=== PATIENT | female | born 1995 | race Hispanic/Latino ===

== ENCOUNTER 2024-07-31 07:38 | Emergency (ER) | payer SELFPAY ==
[2024-07-31] VITALS (8 sets, daily range): BP systolic 96–129; BP diastolic 60–74; BMI 25.9
[2024-07-31 08:44] LABS: % Basophils 1.4 % (0-2); % Eosinophils 5.5 % (0-6); % Monocytes 6.7 % (1.7-9.3); % Neutrophils 55.4 % (42.2-75.2); Absolute Basophils 0.1 10^3/uL (0-0.2); Absolute Eosinophils 0.2 10^3/uL (0-0.7); Absolute Lymphocytes 1.3 10^3/uL (1.2-3.4); Absolute Monocytes 0.3 10^3/uL (0.1-0.6); Absolute Neutrophils 2.3 10^3/uL (1.4-6.5); Hematocrit 40.6 % (37.0-47.0); Hemoglobin 13.4 g/dL (12.0-16.0); Mean Corpuscular Hgb 29.2 pg (27.0-31.0); Mean Corpuscular Volume 88.5 fL (81.0-99.0); Mean Platelet Volume 10.1 fL (7.4-10.4); Nucleated Red Blood Cells % 0 %; Platelet Count 242 10^3/uL (130-400); Red Blood Cell Count 4.59 10^6/uL (4.20-5.40); Red Cell Dist. Width 12.8 % (11.5-14.5); White Blood Cell Count 4.2 10^3/uL (4.8-10.8)
[2024-07-31 09:00] LABS: ALT (SGPT) 17 U/L (0-35); AST (SGOT) 22 U/L (14-36); Albumin 4.5 g/dl (3.5-5.0); Alkaline Phosphatase 50 U/L (38-126); Blood Urea Nitrogen 11 mg/dl (7-17); Calcium 9.1 mg/dl (8.4-10.2); Carbon Dioxide 25 mmol/L (22-30); Chloride 104 mmol/L (98-107); Estimated Creatinine Clearance > 125 ml/min; Glucose 100 mg/dl (70-99); Lipase 102 U/L (23-300); Sodium 140 mmol/L (135-145); Total Bilirubin 0.4 mg/dl (0.2-1.3); Total Protein 7.2 g/dl (6.3-8.2); eGFR > 60.00
--- NOTE | 2024-07-31 09:00 | ED.GENMED ---
History of Present Illness
General
Chief Complaint: Abdominal Pain
Source: patient
Exam Limitations: none and other (contract administration coordinator used)
Time Seen by Provider: 07/31/24 08:14
Nursing documentation reviewed up to this point in time: agreed with
History of Present Illness
History of Present Illness:
29-year-old female presenting to the emergency department today with concerns of lower abdominal pain and pelvic pain with some radiation to the left flank over the past 4 days also vaginal bleeding and pelvic discomfort as well as urinary burning.
Vaginal bleeding is only after going to the bathroom no ongoing bleeding. No discharge no concerns for STD no new sexual contacts.
Review of Systems
Review of Systems
Allergies reviewed?: Yes
All Other Systems: ROS reviewed and negative except as documented in HPI and ROS
Phy Exam
Physical Exam
Physical Exam:
GENERAL: Alert , in no apparent distress
EYE: pupils equal and reactive
NECK: Supple, no significant adenopathy.
ENT: o/p clr, mmm.
CARDIAC: Regular rate and rhythm .
LUNGS: Clear breath sounds bilaterally, no acute respiratory distress, no wheezes/rales/rhonchi
ABDOMEN: Examination with diffuse discomfort no specific masses no discharge small mount of blood in the vaginal vault. Also mild discomfort to the lower suprapubic region otherwise the remainder of the abdomen soft, without focal tenderness, no
r/g, no cvat
NEUROLOGICAL: Alert and oriented, no focal neuro deficits
SKIN: Warm and dry, skin intact.
MUSCULOSKELETAL: No edema, well perfused.
PSYCH: Normal and appropriate interaction.
Course
Orders/Labs/Results
Orders:
Orders
07/31/24 08:37
Complete Blood Count/With Diff Urgent
Comprehensive Metabolic Panel Urgent
HCG, Serum Qualitative Screen Urgent
Comment: ADD ON
Lipase Urgent
07/31/24 08:48
Add On- LAB Urgent
Tests Added?: hcg serum qual
07/31/24 08:58
US Pelvis W Transvag Combined Urgent
Reason For Exam: pelvic pain few days
07/31/24 09:37
Urinalysis Reflex To Culture Urgent
Date Specimen was Collected: 07/31/24
Time Specimen was Collected: 09:00
Urine Microscopic Reflex Cult Urgent
07/31/24 14:15
CT Abd/Pel (IV only)-DH only Urgent
Comment:
Reason For Exam: lower abd pain
07/31/24 15:42
Ibuprofen [Motrin] 600 mg PO NOW STA
Abnormal Lab Results
07/31/24 07/31/24
08:37 09:37
WBC 4.2 L 10^3/uL
(4.8-10.8)
Glucose 100 H mg/dl
(70-99)
Ur Occult Blood Reflex 4+ A
(Negative)
Urine RBC 3-6 A /HPF
(0-2)
Urine Bacteria (Reflex) Few A
(Negative)
07/31/24 08:37
07/31/24 08:37
Vital Signs
Initial and Last Documented VS:
Initial Vital Signs
Temp Pulse Resp BP Pulse Ox
98.2 F 78 16 129/74 100
07/31/24 07:40 07/31/24 07:40 07/31/24 07:40 07/31/24 07:40 07/31/24 07:40
Last Documented Vital Signs
Temp Pulse Resp BP Pulse Ox
97.6 F 53 20 109/65 99
07/31/24 08:36 07/31/24 10:54 07/31/24 10:54 07/31/24 12:00 07/31/24 12:15
MDM/Problems Addressed
MDM/Problems Addressed:
29-year-old female presenting to the emergency department with concerns of 4 days of pelvic discomfort with some radiation to the left flank. Some mild urinary symptoms as well as small mount of blood tinge when urinating. Denies vaginal bleeding
no concern for STD. Here urinalysis without signs of infection. Examination with no discharge no evidence of PID. Ultrasound showing ovarian cyst but good blood flow no evidence of ovarian torsion. She was advised for close outpatient follow-up
with [facility] return precautions given.
*Critical Care Note
Total Time (30-74mins, 75-104mins- exclusive of procedures): Not Applicable
ED Attending Note
-
Portions of this chart may have been created with voice recognition software.� Occasional wrong word or��sound alike� substitutions may have occurred due to the inherent limitations of voice recognition software.
Discharge Plan
Departure
Patient Disposition: Home (Routine Discharge)
Date of Disposition: 07/31/24
Time of Disposition: 15:43
Patient with high blood pressure during this ER visit?: No
Condition: Good
Covid-19: Not Applicable
Discharge Problem:
Ovarian cyst
Instructions: Ovarian Cyst (DC)
Prescriptions:
No Action
No Current Medications
0
Referrals:
Linda Vizcaino, DO [Active] - Follow up in 5-7 days
NONE,* [Family Provider] -
Activity Restrictions/Additional Instructions:
You came to the emergency department today with concerns of pelvic discomfort. You did have an ovarian cyst that could be causing symptoms. Please follow closely with gynecology for further assessment. Return for any worsening, new or concerning
symptoms.
Interventions
Interventions:
*Risk Screen - Suicide Last Done: 07/31/24 07:40
*General Assessment Last Done: 07/31/24 07:40
*Neglect/Abuse Screening Last Done: 07/31/24 08:36
ED- Fall Risk Assessment Last Done: 07/31/24 08:36
*ED COVID-19 Vaccine History Last Done: 07/31/24 07:40
IK-Jltzjd-Yhnjugemqz Assessment Last Done: 07/31/24 08:36
Discharge Date and Time
Print Language: IRISH
[2024-07-31 09:32] LABS: HCG, Serum Qualitative Screen Negative
--- NOTE | 2024-07-31 09:39 | EDRN ---
urine sent to the lab
[2024-07-31 09:48] LABS: Urine Albumin Negative (Neg - Trace); Urine Bilirubin Negative (Negative); Urine Character Clear (Clear); Urine Color Yellow; Urine Glucose Negative (Negative); Urine Ketone Negative (Negative); Urine Leukocyte Negative (Negative); Urine Nitrite Negative (Negative); Urine Occult Blood 4+ (Negative); Urine Urobilinogen Negative (Neg - 1+)
--- NOTE | 2024-07-31 09:52 | EDRN ---
the pt is resting in stretcher in the lowest position, side rails up x1, HOB elevated, call abrams within reach, no s/s of distress, the pt denies needing anything at this time, awaiting for the pt to go to ultrasound, will continue to monitor the pt
closely
[2024-07-31 10:08] LABS: Urine Bacteria Few (Negative)
--- NOTE | 2024-07-31 12:22 | EDRN ---
the pt was taken to ultrasound by this RN
--- NOTE | 2024-07-31 13:11 | EDRN ---
the pt has returned from ultrasound
[2024-07-31] MEDS: MOTRIN 600 MG PO (15:50)
== END 2024-07-31 15:57 | disposition home or self-care (01) ==
LOC: EMR 07:38
PROVIDERS: Physician Assistant; EMERGENCY PHYSICIAN Student in an Organized Health Care Education/Training Program
DX: N83.202 Unspecified ovarian cyst, left side (principal); N93.9 Abnormal uterine and vaginal bleeding, unspecified
CPT/HCPCS: 99284; 74177; 76830; 76856; 80053; 81003; 81015; 83690; 84703; 85025; Q9967